=== PATIENT | male | born 1985 | race Caucasian/White ===

== ENCOUNTER 2018-07-21 09:54 | Emergency (ER) | payer BC, MEDICAID ==
[~2018-07-21] VITALS: Ht 182.9 cm; Wt 74.5 kg
[2018-07-21 09:55] VITALS: BP 125/70
[2018-07-21] MEDS ORDERED: KETOROLAC 30 MG/1 ML ONE (10:24)
[2018-07-21] MEDS ORDERED: CEFAZOLIN 1,000 MG ONE (10:24)
[2018-07-21] MEDS ORDERED: KETOROLAC 30 MG/1 ML IM ONE (10:30)
[2018-07-21] MEDS ORDERED: CEFAZOLIN 1,000 MG IM ONE (10:30)
== END 2018-07-21 12:19 | disposition home or self-care (01) ==
LOC: ED 11:09
DX: L03.115 Cellulitis of right lower limb (principal); Z87.891 Personal history of nicotine dependence
CPT/HCPCS: 93971; 96372; 99284; J0690; J1885